=== PATIENT | male | born 1965 | race Caucasian/White ===

== ENCOUNTER 2023-04-01 08:08 | Emergency (ER) | payer OTHER ==
[~2023-04-01] VITALS: Ht 177.8 cm; Wt 107.1 kg
[2023-04-01] MEDS ORDERED: diazePAM 10MG/2ML SYRINGE IV ONE (08:30)
[2023-04-01] MEDS ORDERED: ONDANSETRON 4MG 2ML VIAL IV ONE (08:30)
[2023-04-01] MEDS ORDERED: MECLIZINE 25 MG TABLET PO ONE (08:30)
[2023-04-01 08:47] LABS: BASO % 0.4 % (0.0-1.0); EOS # 0.1 10^3/uL (0.0-0.5); EOS % 1.5 % (0.0-3.0); HEMATOCRIT 43.4 % (42.0-52.0); HEMOGLOBIN 14.9 g/dl (13.5-17.5); LYMPH % 20.8 % (24.0-44.0); MEAN CORPUSCULAR HEMOGLOBIN 30.3 pg (27.0-33.0); MEAN CORPUSCULAR HGB CONC 34.3 g/dl (32.0-36.5); MEAN CORPUSCULAR VOLUME 88.2 fl (80.0-96.0); MONO # 0.5 10^3/uL (0.0-0.8); MONO % 5.1 % (2.0-8.0); NEUTROPHILS # 6.9 10^3/uL (1.5-8.5); NEUTROPHILS % 71.8 % (36.0-66.0); PLATELET COUNT, AUTOMATED 221 10^3/uL (150-450); RED BLOOD COUNT 4.92 10^6/uL (4.30-6.10); WHITE BLOOD COUNT 9.6 10^3/uL (4.0-10.0)
[2023-04-01 09:12] LABS: INR 1.13; PROTHROMBIN TIME 14.7 SECONDS (12.5-14.5)
[2023-04-01 09:13] LABS: ALBUMIN 3.7 G/DL (3.2-5.2); ALKALINE PHOSPHATASE 84 U/L (46-116); ALT/SGPT 27 U/L (7.0-40); AST/SGOT 17 U/L (<34); BILIRUBIN,TOTAL 0.5 MG/DL (0.3-1.2); BLOOD UREA NITROGEN 19 MG/DL (9-23); CARBON DIOXIDE LEVEL 24 MMOL/L (20-31); CHLORIDE LEVEL 108 MMOL/L (98-107); CREATININE FOR GFR 0.86 MG/DL (0.70-1.30); GLOMERULAR FILTRATION RATE > 60.0 (>56); GLUCOSE, FASTING 169 MG/DL (60-100); PARTIAL THROMBOPLASTIN TIME 33.3 SECONDS (24.8-34.2); POTASSIUM SERUM 3.3 MMOL/L (3.5-5.1); SODIUM LEVEL 141 MMOL/L (136-145); TOTAL PROTEIN 7.2 G/DL (5.7-8.2)
[2023-04-01] MEDS ORDERED: POTASSIUM CHLORIDE 10MEQ SR TABLET PO ONE (09:20)
[2023-04-01] MEDS ORDERED: MECL1TAB31 PO (14:44)
[2023-04-01 15:08] VITALS: BP 133/79; TEMP 97.2; O2SAT 98
== END 2023-04-01 15:10 | disposition home or self-care (01) ==
LOC: M ED 08:08 → EDBD 08:08 → M ED 15:10
DX: H81.4 Vertigo of central origin (principal); R00.1 Bradycardia, unspecified; I25.2 Old myocardial infarction; I10 Essential (primary) hypertension; E78.5 Hyperlipidemia, unspecified; J45.909 Unspecified asthma, uncomplicated; J44.9 Chronic obstructive pulmonary disease, unspecified; F17.200 Nicotine dependence, unspecified, uncomplicated; Z79.899 Other long term (current) drug therapy
CPT/HCPCS: 70450; 70544; 70551; 71045; 80053; 85025; 85610; 85730; 86618; 93005; 93041; 94760; 96374; 99285; J2405; J3360